=== PATIENT | female | born 1975 | race Caucasian/White ===

== ENCOUNTER 2017-12-02 16:36 | Emergency (ER) | payer MEDICAID ==
[~2017-12-02] VITALS: Ht 160 cm; Wt 90.0 kg
[~2017-12-02 16:36] MED LIST: DIAZ5TAB PO; GLYB5TAB PO; METF850T PO; OXYC-302 PO; [UNRECOGNIZED DRUG - REMARK]
[2017-12-02 16:43] VITALS: BP 154/98
== END 2017-12-02 18:09 | disposition home or self-care (01) ==
LOC: ED 17:50
DX: S16.1XXA Strain of muscle, fascia and tendon at neck level, initial encounter (principal); S50.01XA Contusion of right elbow, initial encounter; E11.9 Type 2 diabetes mellitus without complications; F17.200 Nicotine dependence, unspecified, uncomplicated; V49.49XA Driver injured in collision with other motor vehicles in traffic accident, initial encounter; Y93.89 Activity, other specified; Y92.89 Other specified places as the place of occurrence of the external cause; Y99.8 Other external cause status
CPT/HCPCS: 72050; 99284